=== PATIENT | male | born 2000 | race African-American/Black ===

== ENCOUNTER 2021-10-03 15:03 | Emergency (ER) | payer BC ==
--- OUTSIDE RECORDS SUMMARY | 2021-10-03 15:05 | XMS REPORT | Continuity of Care Document ---
:2000 Author Organization [facility] t Address [address] [place] [address] Care Team Providers Name Role Phone Unavailable Unavailable Unavailable Payers Payer Name Policy Type Policy Number Effective Date Expiration Date S ource Problems This patient has no known problems. Allergies, Adverse Reactions, Alerts Allergy Allergy Status Severity Reaction(s) Onset Inactive Treating Comm ents Source Name Type Date Date Clinician No Known DA Active U [facility] All[facility]mon[facility] 04-15 [facility] s [facility] Medications This patient has no known medications. Procedures This patient has no known procedures. Results This patient has no known results.
[2021-10-03] MEDS ORDERED: LIDOCAINE 1% MPF 5 ML VIAL ONE (15:24)
--- NOTE | 2021-10-03 15:50 | ER ---
Nurse's Notes [facility] Name: Kirill Melgoza Jr Age: 21 yrs Sex: Male : 2000 Arrival Date: 10/03/2021 Time: 15:06 Bed 10 Private MD: Diagnosis: Laceration without foreign body of right thumb without damage to nail Presentation: 10/03 15:07 Chief complaint: Patient states: Punched TV with right hand - laceration to right ld1 thumb. Coronavirus screen: At this time, the client does not indicate any symptoms associated with coronavirus-19. Ebola Screen: No symptoms or risks identified at this time. Initial Sepsis Screen: Does the patient meet any 2 criteria? No. Patient's initial sepsis screen is negative. Does the patient have a suspected source of infection? No. Patient's initial sepsis screen is negative. Risk Assessment: Do you want to hurt yourself or someone else? Patient reports no desire to harm self or others. Onset of symptoms was October 03, 2021 at 15:11. 15:07 Method Of Arrival: Ambulatory ld1 15:07 Acuity: AMEENA 3 ld1 Triage Assessment: 15:11 General: Appears in no apparent distress. comfortable, Behavior is calm, cooperative, ld1 appropriate for age. Pain: Denies pain. EENT: No signs and/or symptoms were reported regarding the EENT system. Neuro: Level of Consciousness is awake, alert, obeys commands, Oriented to person, place, time, situation. Cardiovascular: Capillary refill < 3 seconds Patient's skin is warm and dry. Respiratory: Airway is patent Respiratory effort is even, unlabored. Injury Description: Laceration sustained to lateral aspect of right hand is clean, was sustained 30-60 minutes ago. a small amount of bleeding noted at this time. Historical: - Allergies: 15:11 No Known Allergies; ld1 - Home Meds: 15:11 None [Active]; ld1 - PMHx: 15:11 None; ld1 - PSHx: 15:11 None; ld1 - Immunization history:: Adult Immunizations up to date, Client reports receiving the 1st dose of the Covid vaccine. - Social history:: Smoking status: Reported history of juuling and/or vaping. Patient/guardian denies using alcohol. Screenin:25 Abuse screen: Denies threats or abuse. Denies injuries from another. Nutritional ss screening: No deficits noted. Tuberculosis screening: Never had TB. Fall Risk None identified. Assessment: 16:25 General: Appears in no apparent distress. comfortable, Behavior is calm, cooperative. ss Pain: Complains of pain in dorsal aspect of proximal phalanx of right thumb Pain currently is 0 out of 10 on a pain scale. Neuro: Level of Consciousness is awake, alert, obeys commands, Oriented to person, place, time, situation. Respiratory: Airway is patent Respiratory effort is even, unlabored, Respiratory pattern is regular, symmetrical. Derm: Skin is intact, is fragile, Skin is dry, Skin is pink, warm \T\ dry. normal. Vital Signs: 15:07 BP 126 / 75; Pulse 78; Resp 16; Temp 98.6(TE); Pulse Ox 99% on R/A; Weight 92.99 kg; ld1 Height 5 ft. 9 in. (175.26 cm); Pain 0/10; 15:07 Body Mass Index 30.27 (92.99 kg, 175.26 cm) ld1 ED Course: 15:06 Patient arrived in ED. rg4 15:11 Triage completed. ld1 15:11 Arm band placed on right wrist. ld1 15:12 Gayla Tyler, EHSAN is Primary Nurse. ld1 15:15 Dalia Yoo FNP-C is PHCP. kb 15:15 Sandip Marvin MD is Attending Physician. kb 16:25 Patient has correct armband on for positive identification. Bed in low position. ss 16:25 Assist provider with laceration repair on dorsal aspect of proximal phalanx of right ss thumb that was 2.5 cm. or less using sutures. Set up tray. Performed by Dalia HOLLEY Patient tolerated well. Patient did not have IV access during this emergency room visit. Administered Medications: 15:49 Drug: Lidocaine (1 %) 1 vials {Note: Administered by ROBIN Gómez.} Volume: 5 ml; Route: ss Infiltration; 16:08 Drug: Tetanus-Diphtheria Toxoid Adult 0.5 ml {Spine Nurse: [employer]. Exp: ss 07/06/2023. Lot #: [id number]. } Route: IM; Site: right deltoid; 16:25 Follow up: Response: (VIS) Vaccine information sheet provided today. Questions and/or ss concerns addressed. VIS edition date: Oct 05, 2020.; No adverse reaction Medication: 16:25 Vaccine Information Statement (VIS) provided today. Questions and/or concerns ss addressed. VIS edition date: September 2021. Outcome: 15:49 Discharge ordered by . kb 16:25 Discharged to home ambulatory, with family. ss 16:25 Condition: good 16:25 Discharge instructions given to patient, family, Instructed on discharge instructions, follow up and referral plans. medication usage, Demonstrated understanding of instructions, follow-up care. 16:27 Patient left the ED. ss Signatures: Dalia Yoo, CYLINDER DIE MACHINE HELPER-C CYLINDER DIE MACHINE HELPER-Jen Fraga RN RN Lina Lea rg4 Gayla Tyler RN RN ld1 Corrections: (The following items were deleted from the chart) 15:13 15:07 92.99 kg; Height 5 ft. 9 in.; BMI: 30.2; Pain 0/10; ld1 ld1
--- NOTE | 2021-10-03 15:50 | EDPHYS ---
Physician Documentation [facility] Name: Kirill Melgoza Jr Age: 21 yrs Sex: Male : 2000 Arrival Date: 10/03/2021 Time: 15:06 Bed 10 Private MD: ED Physician Sandip Marvin HPI: 10/03 15:48 This 21 yrs old Black Male presents to ER via Ambulatory with complaints of Finger kb Laceration. 15:48 The patient has a laceration related to: punched tv and glass cut his thumb occurred at home, and there are no complicating factors. The injury was accidental. The laceration(s) is(are) located on the dorsal aspect of proximal phalanx of right thumb. Onset: The symptoms/episode began/occurred just prior to arrival. Associated signs and symptoms: The patient has no apparent associated signs or symptoms. The patient has not experienced similar symptoms in the past. The patient has not recently seen a physician. Historical: - Allergies: 15:11 No Known Allergies; ld1 - Home Meds: 15:11 None [Active]; ld1 - PMHx: 15:11 None; ld1 - PSHx: 15:11 None; ld1 - Immunization history:: Adult Immunizations up to date, Client reports receiving the 1st dose of the Covid vaccine. - Social history:: Smoking status: Reported history of juuling and/or vaping. Patient/guardian denies using alcohol. ROS: 15:47 Constitutional: Negative for fever, chills, and weight loss. kb 15:47 Skin: Positive for laceration(s), of the dorsal aspect of proximal phalanx of right thumb. 15:47 All other systems are negative. Exam: 15:47 Constitutional: This is a well developed, well nourished patient who is awake, alert, kb and in no acute distress. Head/Face: Normocephalic, atraumatic. ENT: Moist Mucous membranes Cardiovascular: Regular rate and rhythm with a normal S1 and S2. No gallops, murmurs, or rubs. No pulse deficits. Respiratory: Respirations even and unlabored. No increased work of breathing. Talking in full sentences MS/ Extremity: Pulses equal, no cyanosis. Neurovascular intact. Full, normal range of motion. Neuro: Awake and alert, GCS 15, oriented to person, place, time, and situation. Moves all extremities. Normal gait. Psych: Awake, alert, with orientation to person, place and time. Behavior, mood, and affect are within normal limits. 15:47 Skin: injury, laceration(s), the wound is approximately 3 cm(s), of the dorsal aspect of proximal phalanx of right thumb, that can be described as clean, no foreign body, linear, with mild bleeding. Vital Signs: 15:07 BP 126 / 75; Pulse 78; Resp 16; Temp 98.6(TE); Pulse Ox 99% on R/A; Weight 92.99 kg; ld1 Height 5 ft. 9 in. (175.26 cm); Pain 0/10; 15:07 Body Mass Index 30.27 (92.99 kg, 175.26 cm) ld1 Laceration: 15:48 Wound Repair of 3cm ( 1.2in ) subcutaneous laceration to dorsal aspect of proximal kb phalanx of right thumb. Linear shaped.. Distal neuro/vascular/tendon intact. Anesthesia: Wound infiltrated with 2 mls of 1% lidocaine. Wound prep: Extensive cleansing with hibiclenz by me, Wound irrigation with saline by me. Skin closed with 5 5-0 Prolene using simple sutures and sterile technique. Patient tolerated well. MDM: 15:15 Patient medically screened. kb 15:48 Data reviewed: vital signs, nurses notes. Data interpreted: Pulse oximetry: on room air kb is 99 %. Interpretation: normal. Counseling: I had a detailed discussion with the patient and/or guardian regarding: the historical points, exam findings, and any diagnostic results supporting the discharge/admit diagnosis, the need for outpatient follow up, a family practitioner, to return to the emergency department if symptoms worsen or persist or if there are any questions or concerns that arise at home. 15:49 ED course: full rom. kb 10/03 15:30 Order name: Dressing - Wound; Complete Time: 16:05 kb 10/03 15:30 Order name: Gloves, Sterile; Complete Time: 15:50 kb 10/03 15:30 Order name: Prolene, Sutures; Complete Time: 16:05 kb 10/03 15:30 Order name: Setup Suture Tray; Complete Time: 15:50 kb 10/03 15:50 Order name: Finger Splint; Complete Time: 16:14 snw Administered Medications: 15:49 Drug: Lidocaine (1 %) 1 vials {Note: Administered by NP. Dalia} Volume: 5 ml; Route: ss Infiltration; 16:08 Drug: Tetanus-Diphtheria Toxoid Adult 0.5 ml {Health Advisor: [employer]. Exp: ss 07/06/2023. Lot #: [id number]. } Route: IM; Site: right deltoid; 16:25 Follow up: Response: (VIS) Vaccine information sheet provided today. Questions and/or ss concerns addressed. VIS edition date: Oct 05, 2020.; No adverse reaction Disposition: 10/04 09:05 Co-signature as Attending Physician, Sandip Marvin MD I agree with the assessment and kdr plan of care. Disposition Summary: 10/03/21 15:49 Discharge Ordered Location: Home kb Condition: Stable kb Diagnosis - Laceration without foreign body of right thumb without damage to nail kb Followup: kb - With: Emergency Department - When: As needed - Reason: Worsening of condition Followup: kb - With: Private Physician - When: 2 - 3 days - Reason: Recheck today's complaints, Continuance of care, Re-evaluation by your physician Discharge Instructions: - Discharge Summary Sheet kb - Laceration Care, Adult, [id number] kb Forms: - Medication Reconciliation Form kb - Thank You Letter kb - Antibiotic Education kb - Prescription Opioid Use kb Signatures: Dalia Yoo, ROSA-C DIRECTOR HEDIS-Ckb Sandip Marvin MD MD kdr Waters, Shelly, FNP-C DIRECTOR HEDIS-Veritow Jen Sparrow RN RN Gayla Tyler, EHSAN RN ld1
[2021-10-03] MEDS ORDERED: TETANUS & DIPHTHERIA TOX,ADULT 0.5 ML VIAL ONE (16:14)
[2021-10-03 17:24] VITALS: BP 126/75; TEMP 98.6; O2SAT 99
== END 2021-10-03 16:27 | disposition home or self-care (01) ==
LOC: ER 15:03
PROC: 0JQJ0ZZ Repair Right Hand Subcutaneous Tissue and Fascia, Open Approach (ICD-10-PCS; principal; 2021-10-03)
DX: S61.011A Laceration without foreign body of right thumb without damage to nail, initial encounter (principal); Z23 Encounter for immunization
CPT/HCPCS: 90471; 90714; 99283

== ENCOUNTER 2021-10-13 18:15 | Emergency (ER) | payer BC ==
--- OUTSIDE RECORDS SUMMARY | 2021-10-13 18:18 | XMS REPORT | Continuity of Care Document ---
:[address] [facility] t Address [address] [place] [address] Care Team Providers Name Role Phone Unavailable Unavailable Unavailable Payers Payer Name Policy Type Policy Number Effective Date Expiration Date S ource Problems This patient has no known problems. Allergies, Adverse Reactions, Alerts Allergy Allergy Status Severity Reaction(s) Onset Inactive Treating Comm ents Source Name Type Date Date Clinician No Known DA Active U [facility] Allergie 2-14 [place] s 00:00: d 00 [facility] Medications This patient has no known medications. Procedures This patient has no known procedures. Results This patient has no known results.
--- NOTE | 2021-10-13 19:14 | EDPHYS ---
Physician Documentation [facility] Name: Kirill Melgoza Jr Age: 21 yrs Sex: Male : 2000 Arrival Date: 10/13/2021 Time: 18:16 Bed Waiting Private MD: ED Physician Danny Gold HPI: 10/13 19:09 This 21 yrs old Black Male presents to ER via Ambulatory with complaints of Suture jmm Removal. 19:09 The patient has sutures on the dorsal aspect of proximal phalanx of right thumb. The jmm patient has not experienced similar symptoms in the past. 21-year-old male with no chronic medical conditions presents emerged department needing wound evaluation. Patient states having sutures placed 10 days ago to the right thumb. Patient had injured his hand after punching through a TV. Patient states having some concerns that he has decreased ability to extend his thumb.. Historical: - Allergies: 18:59 No Known Allergies; kb3 - PMHx: 18:59 None; kb3 - PSHx: 18:59 None; kb3 - Immunization history:: Adult Immunizations up to date, Client reports receiving the 1st dose of the Covid vaccine. - Social history:: Smoking status: Patient reports the use of cigarette tobacco products, Patient uses alcohol, occasionally. street drugs, marijuana. ROS: 19:09 Constitutional: Negative for fever, chills, and weight loss, Cardiovascular: Negative jmm for chest pain, palpitations, and edema, Respiratory: Negative for shortness of breath, cough, wheezing, and pleuritic chest pain. 19:09 All other systems are negative. Exam: 19:09 Constitutional: This is a well developed, well nourished patient who is awake, alert, jmm and in no acute distress. Head/Face: atraumatic. Eyes: EOMI, no conjunctival erythema appreciated ENT: Moist Mucus Membranes Neck: Trachea midline, Supple Chest/axilla: Normal chest wall appearance and motion. Cardiovascular: Regular rate and rhythm. No edema appreciated Respiratory: Normal respirations, no respiratory distress appreciated Abdomen/GI: Non distended Back: Normal ROM 19:09 Skin: healing laceration noted to the right extensor surface of the proximal thumb. 19:09 Neuro: Orientation: is normal, Mentation: is normal, Memory: is normal. 19:09 Psych: Behavior/mood is pleasant, cooperative. 19:09 Musculoskeletal/extremity: Patient did have the ability to extend the right thumb at [facility] the right pip when isolated. . Vital Signs: 18:56 Pulse 71; Resp 18; Temp 98.; Pulse Ox 100% ; Weight 92.99 kg; Height 5 ft. 9 in. kb3 (175.26 cm); Pain 0/10; 19:00 BP 132 / 76; kb3 18:56 Body Mass Index 30.27 (92.99 kg, 175.26 cm) kb3 MDM: 19:09 Patient medically screened. [facility] 19:12 Data reviewed: vital signs, nurses notes. Counseling: I had a detailed discussion with [facility] the patient and/or guardian regarding: the historical points, exam findings, and any diagnostic results supporting the discharge/admit diagnosis. ED course: 2 sutures were removed. Wound dehiscence occurred. A Steri-Strip was applied. Thumb was placed back in splint. I also discussed with the patient the need for close follow-up with hand surgery due to decreased ability to extend the thumb. Patient understood and agrees plan of care.. Administered Medications: No medications were administered Disposition Summary: 10/13/21 19:14 Discharge Ordered Location: Home [facility] Condition: Stable [facility] Diagnosis - Encounter for removal of sutures [facility] Followup: [facility] - With: Maciej Sotomayor MD - When: 1 - 2 days - Reason: Recheck today's complaints, Continuance of care, Re-evaluation by your physician Discharge Instructions: - Discharge Summary Sheet [facility] - Suture Removal, Care After [facility] Forms: - Medication Reconciliation Form [facility] - Thank You Letter [facility] - Antibiotic Education [facility] - Prescription Opioid Use [facility] Signatures: Rohan Mae PA PA jmm Bradberry, Kelly, RN RN kb3
--- NOTE | 2021-10-13 19:14 | ER ---
Nurse's Notes [facility] Name: Kirill Melgoza Jr Age: 21 yrs Sex: Male : 2000 Arrival Date: 10/13/2021 Time: 18:16 Bed Waiting Private MD: Diagnosis: Encounter for removal of sutures Presentation: 10/13 18:56 Chief complaint: Patient states: Pt states he is here for suture removal from right kb3 thumb. Sutures were placed 10 days ago in this ED. Coronavirus screen: Vaccine status: Patient reports receiving the 1st dose of the Covid vaccine. Client denies travel out of the [place] in the last 14 days. At this time, the client does not indicate any symptoms associated with coronavirus-19. Ebola Screen: Patient negative for fever greater than or equal to 101.5 degrees Fahrenheit, and additional compatible Ebola Virus Disease symptoms Patient denies exposure to infectious person. Patient denies travel to an Ebola-affected area in the 21 days before illness onset. No symptoms or risks identified at this time. Initial Sepsis Screen: Does the patient meet any 2 criteria? Yes Does the patient have a suspected source of infection? No. Patient's initial sepsis screen is negative. Risk Assessment: Do you want to hurt yourself or someone else? Patient reports no desire to harm self or others. Onset of symptoms was October 03, 2021. 18:56 Method Of Arrival: Ambulatory kb3 18:56 Acuity: AMEENA 5 kb3 Triage Assessment: 18:59 General: Appears in no apparent distress. Behavior is calm, cooperative. Pain: Denies kb3 pain. Historical: - Allergies: 18:59 No Known Allergies; kb3 - PMHx: 18:59 None; kb3 - PSHx: 18:59 None; kb3 - Immunization history:: Adult Immunizations up to date, Client reports receiving the 1st dose of the Covid vaccine. - Social history:: Smoking status: Patient reports the use of cigarette tobacco products, Patient uses alcohol, occasionally. street drugs, marijuana. Screenin:35 Abuse screen: Denies threats or abuse. Denies injuries from another. Nutritional kb3 screening: No deficits noted. Tuberculosis screening: No symptoms or risk factors identified. Fall Risk None identified. Assessment: 19:36 General: Upon removing sutures, wound is noted to be slightly dehisced and not kb3 completely closed. PT continues reporting difficulty extending and flexing thumb at DPJ. Per Rohan HENDERSON, steri-strips placed and wound wrapped with kerlix, splint placed back on thumb and pt instructed to follow up with hand surgeon.. Vital Signs: 18:56 Pulse 71; Resp 18; Temp 98.; Pulse Ox 100% ; Weight 92.99 kg; Height 5 ft. 9 in. kb3 (175.26 cm); Pain 0/10; 19:00 BP 132 / 76; kb3 18:56 Body Mass Index 30.27 (92.99 kg, 175.26 cm) kb3 ED Course: 18:16 Patient arrived in ED. rg4 18:22 Rohan Mae PA is PHCP. [facility] 18:22 Danny Gold MD is Attending Physician. jmm 18:59 Triage completed. kb3 18:59 Arm band placed on right wrist. kb3 19:14 Maciej Sotomayor MD is Referral Physician. jmm 19:35 Patient has correct armband on for positive identification. kb3 19:35 Suture removal. Patient did not have IV access during this emergency room visit. kb3 19:36 Removal of Removed sutures from palmar aspect of distal phalanx of left thumb. kb3 Administered Medications: No medications were administered Medication: 19:38 VIS not applicable for this client. kb3 Outcome: 19:14 Discharge ordered by . jmm 19:35 Discharged to home ambulatory. kb3 19:35 Condition: stable 19:35 Discharge instructions given to patient, Instructed on discharge instructions, follow up and referral plans. Demonstrated understanding of instructions, follow-up care. 19:39 Patient left the ED. kb3 Signatures: Rohan Mae PA PA jmm Garcia, Rubi rg4 Kristel Owen, RN RN kb3
[2021-10-13 22:30] VITALS: BP 132/76
[2021-10-13 22:36] VITALS: TEMP 98; O2SAT 100
== END 2021-10-13 19:39 | disposition home or self-care (01) ==
LOC: ER 18:15
DX: Z48.02 Encounter for removal of sutures (principal)
CPT/HCPCS: 99281